=== PATIENT | female | born 1995 | race Caucasian/White ===

== ENCOUNTER 2022-03-04 13:15 | Emergency (ER) | payer MEDICAID ==
[~2022-03-04] VITALS: Ht 167.6 cm; Wt 59.0 kg
[2022-03-04 13:24] VITALS: BP 107/75
== END 2022-03-04 15:24 | disposition home or self-care (01) ==
LOC: ER 13:16
DX: M25.522 Pain in left elbow (principal); M25.422 Effusion, left elbow; V00.311A Fall from snowboard, initial encounter; Y93.89 Activity, other specified; Y92.89 Other specified places as the place of occurrence of the external cause; Y99.8 Other external cause status
CPT/HCPCS: 73080; 99283